=== PATIENT | female | born 1970 | race Caucasian/White ===

== ENCOUNTER 2021-04-15 20:42 | Inpatient (IN) | payer OTHER ==
[~2021-04-15] VITALS: Ht 172.7 cm; Wt 185.1 kg
[~2021-04-15 20:42] MED LIST: ALDACTONE25 MG PO; AZELASTIN-FLUTI23 GM; BUMETANIDE1 MG PO; CELEXA40 MG PO; CIPRO500 MG PO; COLACE100 MG PO; DESYREL 50 MG T50 MG PO; DOXYCYCLINE HY100 M2 PO; FISH OIL 1,0001 EACH PO; FLONASE 0.05% N16 GM; FOLIC ACID 1 MG1 MG PO; HYDROCHLOROTHIA25 MG PO; INVANZ 1 GM VIAL1 GM IM; IPRAT-ALBUT 0.5-3 ML INH; LASIX20 MG PO; MAG-OX 400 TAB400 MG PO; MECLIZINE HCL25 MG PO; MIRALAX17 GM PO; PEPCID20 MG PO; POTASSIUM CHLO20 ME1 PO; PRINIVIL5 MG PO; PROVENTIL HFA6.7 GM INH; PULMICORT FLE180 MCG INH; SINGULAIR10 MG PO; TYLENOL 325MG325 MG PO; VITAMIN D IM; ZOFRAN4 MG PO
[2021-04-15 21:27] LABS: HEMOGLOBIN 12.8 gm/dl (12.3-15.3); RED BLOOD COUNT 4.24 M/UL (4.00-5.10); WHITE BLOOD COUNT 7.8 K/UL (4.5-11.0)
[2021-04-15 21:52] LABS: BUN/CREATININE RATIO 10 (0-10)
[2021-04-16 03:31] LABS: HEMOGLOBIN 12.6 gm/dl (12.3-15.3); RED BLOOD COUNT 4.2 M/UL (4.00-5.10); WHITE BLOOD COUNT 7.4 K/UL (4.5-11.0)
[2021-04-16 04:16] LABS: BUN/CREATININE RATIO 12 (0-10)
[2021-04-16] MEDS ORDERED: KLONOPIN TAB 00.5 MG PO (06:15)
[2021-04-16] MEDS ORDERED: NEURONTIN300 MG PO (06:16)
[2021-04-16] MEDS ORDERED: VITAMIN D31250 MCG PO (06:18)
[2021-04-16] MEDS ORDERED: B-121000 MCG PO (16:05)
[2021-04-16] MEDS ORDERED: MONTELUKAST SOD10 MG PO (16:08)
[2021-04-16] MEDS ORDERED: IBU800 MG PO (16:10)
[2021-04-16] MEDS ORDERED: CARAFATE1 GM PO (19:53)
[2021-04-18 15:52] LABS: HEMOGLOBIN 12.5 gm/dl (12.3-15.3); RED BLOOD COUNT 4.16 M/UL (4.00-5.10); WHITE BLOOD COUNT 10.4 K/UL (4.5-11.0)
--- NOTE | 2021-04-18 18:48 | NUR ---
1806- PT O2 SAT 82%, ABG PO2 52, DR RICO AT BEDSIDE, PT MEDICATED AND INTUBATED, 7.5 ETT, 24 AT [facility], FAMILY NOTIFIED.
[2021-04-19 05:28] LABS: HEMOGLOBIN 11.5 gm/dl (12.3-15.3); RED BLOOD COUNT 3.82 M/UL (4.00-5.10)
[2021-04-19 05:29] LABS: WHITE BLOOD COUNT 7.7 K/UL (4.5-11.0)
--- NOTE | 2021-04-19 12:31 | NUR ---
PT RINGS AND EARRINGS REMOVED R/T SWELLING, PLACED IN DENTURE CUP WITH PT NAME LABEL AT BEDSIDE.
[2021-04-20 05:18] LABS: HEMOGLOBIN 12.1 gm/dl (12.3-15.3); RED BLOOD COUNT 4.05 M/UL (4.00-5.10); WHITE BLOOD COUNT 8.1 K/UL (4.5-11.0)
[2021-04-21 05:39] LABS: RED BLOOD COUNT 4.04 M/UL (4.00-5.10); WHITE BLOOD COUNT 8.1 K/UL (4.5-11.0)
[2021-04-22 04:55] LABS: HEMOGLOBIN 12.3 gm/dl (12.3-15.3); RED BLOOD COUNT 4.15 M/UL (4.00-5.10); WHITE BLOOD COUNT 9.4 K/UL (4.5-11.0)
[2021-04-23 08:25] LABS: HEMOGLOBIN 11.8 gm/dl (12.3-15.3); WHITE BLOOD COUNT 7.8 K/UL (4.5-11.0)
[2021-04-24 06:30] LABS: HEMOGLOBIN 12.7 gm/dl (12.3-15.3); RED BLOOD COUNT 4.27 M/UL (4.00-5.10)
[2021-04-24 06:33] LABS: WHITE BLOOD COUNT 11.8 K/UL (4.5-11.0)
[2021-04-25 06:20] LABS: HEMOGLOBIN 11.6 gm/dl (12.3-15.3); RED BLOOD COUNT 3.99 M/UL (4.00-5.10); WHITE BLOOD COUNT 10.1 K/UL (4.5-11.0)
[2021-04-26 05:23] LABS: HEMOGLOBIN 11.9 gm/dl (12.3-15.3); RED BLOOD COUNT 4.01 M/UL (4.00-5.10)
[2021-04-28 02:02] LABS: HEMOGLOBIN 12.1 gm/dl (12.3-15.3); RED BLOOD COUNT 4.13 M/UL (4.00-5.10); WHITE BLOOD COUNT 11.1 K/UL (4.5-11.0)
[2021-04-29 06:26] LABS: HEMOGLOBIN 12.4 gm/dl (12.3-15.3); RED BLOOD COUNT 4.23 M/UL (4.00-5.10)
[2021-04-29 07:05] LABS: BUN/CREATININE RATIO 47 (0-10)
[2021-04-30 05:23] LABS: BUN/CREATININE RATIO 52 (0-10)
[2021-04-30 05:55] LABS: HEMOGLOBIN 12.2 gm/dl (12.3-15.3); RED BLOOD COUNT 4.09 M/UL (4.00-5.10); WHITE BLOOD COUNT 9.4 K/UL (4.5-11.0)
--- NOTE | 2021-04-30 10:20 | NUR ---
SPOKE WITH PATIENT SONS REGARDING THE POSSIBLITY OF TRACH AND PEG. PER THE SONS WISHES HE DISCUSSED THE SITUATION FURTHER WITH DR. ROMERO. HE SAID HE WILL MAKE A DECISION AND CALL BACK ABOUT HOW HE WOULD LIKE TO PROCEED. PER PRECEDEX STOPPED AT THIS TIME.
[2021-05-01 04:53] LABS: HEMOGLOBIN 12.2 gm/dl (12.3-15.3); RED BLOOD COUNT 4.12 M/UL (4.00-5.10); WHITE BLOOD COUNT 9.2 K/UL (4.5-11.0)
[2021-05-01 05:32] LABS: BUN/CREATININE RATIO 51 (0-10)
[2021-05-02 05:32] LABS: HEMOGLOBIN 11.9 gm/dl (12.3-15.3); RED BLOOD COUNT 4.01 M/UL (4.00-5.10); WHITE BLOOD COUNT 6.9 K/UL (4.5-11.0)
[2021-05-02 05:50] LABS: BUN/CREATININE RATIO 50 (0-10)
[2021-05-03 05:08] LABS: RED BLOOD COUNT 4.05 M/UL (4.00-5.10); WHITE BLOOD COUNT 5.4 K/UL (4.5-11.0)
[2021-05-03 05:47] LABS: BUN/CREATININE RATIO 43 (0-10)
--- NOTE | 2021-05-03 15:51 | NUR ---
Face time call with patients's son Kenji and gave updates on patient. ([id number])
[2021-05-04 06:22] LABS: BUN/CREATININE RATIO 41 (0-10)
--- NOTE | 2021-05-04 09:35 | NUR ---
SPOKE WITH PATIENTS SON JUSTICE, UPDATED HIM ON PATIENT STATUS AND EXTUBATION.
[2021-05-06 05:35] LABS: HEMOGLOBIN 11.9 gm/dl (12.3-15.3); RED BLOOD COUNT 4.01 M/UL (4.00-5.10); WHITE BLOOD COUNT 7.5 K/UL (4.5-11.0)
[2021-05-09 08:27] LABS: HEMOGLOBIN 10.6 gm/dl (12.3-15.3); RED BLOOD COUNT 3.67 M/UL (4.00-5.10); WHITE BLOOD COUNT 4.9 K/UL (4.5-11.0)
[2021-05-09 08:51] LABS: BUN/CREATININE RATIO 18 (0-10)
[2021-05-11 14:15] LABS: HEMOGLOBIN 11.5 gm/dl (12.3-15.3); RED BLOOD COUNT 3.78 M/UL (4.00-5.10)
[2021-05-11 14:39] LABS: BUN/CREATININE RATIO 21 (0-10)
[2021-05-12 09:53] LABS: HEMOGLOBIN 11.3 gm/dl (12.3-15.3); RED BLOOD COUNT 3.79 M/UL (4.00-5.10); WHITE BLOOD COUNT 5.8 K/UL (4.5-11.0)
[2021-05-12 10:27] LABS: BUN/CREATININE RATIO 21 (0-10)
[2021-05-13 02:39] LABS: HEMOGLOBIN 10.9 gm/dl (12.3-15.3); RED BLOOD COUNT 3.68 M/UL (4.00-5.10); WHITE BLOOD COUNT 4.8 K/UL (4.5-11.0)
[2021-05-13 02:59] LABS: BUN/CREATININE RATIO 21 (0-10)
[2021-05-14 08:58] LABS: HEMOGLOBIN 11.3 gm/dl (12.3-15.3); RED BLOOD COUNT 3.84 M/UL (4.00-5.10); WHITE BLOOD COUNT 5.7 K/UL (4.5-11.0)
[2021-05-14 09:28] LABS: BUN/CREATININE RATIO 18 (0-10)
[2021-05-15 03:30] LABS: HEMOGLOBIN 11.3 gm/dl (12.3-15.3); RED BLOOD COUNT 3.79 M/UL (4.00-5.10)
[2021-05-15 03:31] LABS: WHITE BLOOD COUNT 7.3 K/UL (4.5-11.0)
[2021-05-15 03:51] LABS: BUN/CREATININE RATIO 24 (0-10)
[2021-05-16 09:28] LABS: RED BLOOD COUNT 3.72 M/UL (4.00-5.10); WHITE BLOOD COUNT 8.1 K/UL (4.5-11.0)
[2021-05-16 10:08] LABS: BUN/CREATININE RATIO 28 (0-10)
[2021-05-17 08:51] LABS: HEMOGLOBIN 11.4 gm/dl (12.3-15.3); RED BLOOD COUNT 3.8 M/UL (4.00-5.10); WHITE BLOOD COUNT 6.9 K/UL (4.5-11.0)
[2021-05-17 09:19] LABS: BUN/CREATININE RATIO 24 (0-10)
[2021-05-18 07:49] LABS: HEMOGLOBIN 11.4 gm/dl (12.3-15.3); RED BLOOD COUNT 3.86 M/UL (4.00-5.10); WHITE BLOOD COUNT 6.8 K/UL (4.5-11.0)
[2021-05-18 08:22] LABS: BUN/CREATININE RATIO 27 (0-10)
[2021-05-19 05:28] LABS: HEMOGLOBIN 11.4 gm/dl (12.3-15.3); RED BLOOD COUNT 3.9 M/UL (4.00-5.10); WHITE BLOOD COUNT 8.1 K/UL (4.5-11.0)
[2021-05-19 06:33] LABS: BUN/CREATININE RATIO 24 (0-10)
[2021-05-20 05:01] LABS: HEMOGLOBIN 10.6 gm/dl (12.3-15.3); RED BLOOD COUNT 3.64 M/UL (4.00-5.10); WHITE BLOOD COUNT 7.9 K/UL (4.5-11.0)
[2021-05-21 03:22] LABS: HEMOGLOBIN 11.3 gm/dl (12.3-15.3); RED BLOOD COUNT 3.77 M/UL (4.00-5.10); WHITE BLOOD COUNT 9.4 K/UL (4.5-11.0)
[2021-05-21 04:12] LABS: BUN/CREATININE RATIO 25 (0-10)
[2021-05-22 02:44] LABS: HEMOGLOBIN 10.9 gm/dl (12.3-15.3); RED BLOOD COUNT 3.68 M/UL (4.00-5.10); WHITE BLOOD COUNT 9.2 K/UL (4.5-11.0)
[2021-05-22 03:03] LABS: BUN/CREATININE RATIO 26 (0-10)
[2021-05-23 03:02] LABS: RED BLOOD COUNT 3.7 M/UL (4.00-5.10)
[2021-05-23 03:41] LABS: BUN/CREATININE RATIO 26 (0-10)
[2021-05-26 06:43] LABS: HEMOGLOBIN 10.8 gm/dl (12.3-15.3); RED BLOOD COUNT 3.56 M/UL (4.00-5.10); WHITE BLOOD COUNT 8.3 K/UL (4.5-11.0)
[2021-05-26 08:59] LABS: BUN/CREATININE RATIO 22 (0-10)
[2021-05-27 08:00] LABS: HEMOGLOBIN 10.2 gm/dl (12.3-15.3); RED BLOOD COUNT 3.51 M/UL (4.00-5.10); WHITE BLOOD COUNT 8.2 K/UL (4.5-11.0)
[2021-05-28 07:02] LABS: HEMOGLOBIN 10.9 gm/dl (12.3-15.3); RED BLOOD COUNT 3.76 M/UL (4.00-5.10); WHITE BLOOD COUNT 8.5 K/UL (4.5-11.0)
[2021-05-29 05:03] LABS: HEMOGLOBIN 10.6 gm/dl (12.3-15.3); RED BLOOD COUNT 3.68 M/UL (4.00-5.10); WHITE BLOOD COUNT 9.1 K/UL (4.5-11.0)
[2021-05-30 07:37] LABS: HEMOGLOBIN 10.2 gm/dl (12.3-15.3); RED BLOOD COUNT 3.54 M/UL (4.00-5.10)
[2021-05-31 08:15] LABS: HEMOGLOBIN 10.9 gm/dl (12.3-15.3); RED BLOOD COUNT 3.64 M/UL (4.00-5.10); WHITE BLOOD COUNT 7.5 K/UL (4.5-11.0)
[2021-05-31 08:35] LABS: BUN/CREATININE RATIO 22 (0-10)
[2021-06-01 07:41] LABS: HEMOGLOBIN 10.8 gm/dl (12.3-15.3); RED BLOOD COUNT 3.75 M/UL (4.00-5.10); WHITE BLOOD COUNT 6.7 K/UL (4.5-11.0)
[2021-06-02 06:37] LABS: HEMOGLOBIN 10.7 gm/dl (12.3-15.3); RED BLOOD COUNT 3.59 M/UL (4.00-5.10); WHITE BLOOD COUNT 6.8 K/UL (4.5-11.0)
--- NOTE | 2021-06-02 18:58 | NUR ---
pt weight 176.4kg
[2021-06-03 06:57] LABS: HEMOGLOBIN 11.2 gm/dl (12.3-15.3); RED BLOOD COUNT 3.78 M/UL (4.00-5.10); WHITE BLOOD COUNT 8.3 K/UL (4.5-11.0)
[2021-06-04 07:05] LABS: HEMOGLOBIN 11.1 gm/dl (12.3-15.3); RED BLOOD COUNT 3.7 M/UL (4.00-5.10); WHITE BLOOD COUNT 8.1 K/UL (4.5-11.0)
[2021-06-05 07:35] LABS: HEMOGLOBIN 10.7 gm/dl (12.3-15.3); RED BLOOD COUNT 3.59 M/UL (4.00-5.10); WHITE BLOOD COUNT 7.7 K/UL (4.5-11.0)
[2021-06-06 08:22] LABS: HEMOGLOBIN 10.8 gm/dl (12.3-15.3); RED BLOOD COUNT 3.72 M/UL (4.00-5.10); WHITE BLOOD COUNT 8.2 K/UL (4.5-11.0)
[2021-06-07 07:02] LABS: HEMOGLOBIN 10.8 gm/dl (12.3-15.3); RED BLOOD COUNT 3.61 M/UL (4.00-5.10); WHITE BLOOD COUNT 8.6 K/UL (4.5-11.0)
[2021-06-08 06:54] LABS: HEMOGLOBIN 11.2 gm/dl (12.3-15.3); RED BLOOD COUNT 3.75 M/UL (4.00-5.10); WHITE BLOOD COUNT 8.3 K/UL (4.5-11.0)
[2021-06-10] MEDS ORDERED: LOPRESSOR 25 MG25 MG NG (11:16)
[2021-06-10] MEDS ORDERED: ELIQUIS 5 MG TAB5 MG PO (11:16)
[2021-06-10] MEDS ORDERED: POTASSIUM CHLO20 ME1 PO (11:16)
[2021-06-10] MEDS ORDERED: PERCOCET 5/325 T1 EA PO (11:16)
[2021-06-10] MEDS ORDERED: MEGACE 400400 MG/10 NG (11:16)
[2021-06-10] MEDS ORDERED: BUMETANIDE1 MG PO (11:16)
[2021-06-10] MEDS ORDERED: GABAPENTIN100 MG PO (11:16)
[2021-06-10] MEDS ORDERED: KLONOPIN TAB 00.5 MG PO (11:19)
[2021-06-10] MEDS ORDERED: HUMALOG 10100 UNITS/ SC (13:10)
[2021-06-10] MEDS ORDERED: LANTUS INS100 UTS/M1 SC (13:10)
== END 2021-06-10 17:09 | DRG 207 ==
LOC: ER1 20:42 → PROG CARE 22:14 → MED SURG 4 22:14 → CDU 22:14 → CCU 22:14 → PROG CARE 04-16 02:07 → CCU 04-18 15:06 → PROG CARE 05-10 16:49 → MED SURG 4 05-25 10:25
PROVIDERS: Family Medicine; Internal Medicine; Internal Medicine Pulmonary Disease; Surgery; ADMIT Internal Medicine
PROC: 5A09457 Assistance with Respiratory Ventilation, 24-96 Consecutive Hours, Continuous Positive Airway Pressure (ICD-10-PCS; principal; 2021-04-15)
PROC: 0DH67UZ Insertion of Feeding Device into Stomach, Via Natural or Artificial Opening (ICD-10-PCS; 2021-04-15)
PROC: 3E0336Z Introduction of Nutritional Substance into Peripheral Vein, Percutaneous Approach (ICD-10-PCS; 2021-04-15)
PROC: 8E0ZXY6 Isolation (ICD-10-PCS; 2021-04-15)
PROC: 3E0333Z Introduction of Anti-inflammatory into Peripheral Vein, Percutaneous Approach (ICD-10-PCS; 2021-04-15)
PROC: XW033E5 Introduction of Remdesivir Anti-infective into Peripheral Vein, Percutaneous Approach, New Technology Group 5 (ICD-10-PCS; 2021-04-15)
PROC: XW033H5 Introduction of Tocilizumab into Peripheral Vein, Percutaneous Approach, New Technology Group 5 (ICD-10-PCS; 2021-04-15)
PROC: 5A1955Z Respiratory Ventilation, Greater than 96 Consecutive Hours (ICD-10-PCS; 2021-04-18)
PROC: 0BH17EZ Insertion of Endotracheal Airway into Trachea, Via Natural or Artificial Opening (ICD-10-PCS; 2021-04-18)
PROC: 02HV33Z Insertion of Infusion Device into Superior Vena Cava, Percutaneous Approach (ICD-10-PCS; 2021-04-20)
PROC: 0B9D8ZX Drainage of Right Middle Lung Lobe, Via Natural or Artificial Opening Endoscopic, Diagnostic (ICD-10-PCS; 2021-04-20)
PROC: 0BJ08ZZ Inspection of Tracheobronchial Tree, Via Natural or Artificial Opening Endoscopic (ICD-10-PCS; 2021-04-20)
PROC: 5A09357 Assistance with Respiratory Ventilation, Less than 24 Consecutive Hours, Continuous Positive Airway Pressure (ICD-10-PCS; 2021-05-04)
PROC: 5A09457 Assistance with Respiratory Ventilation, 24-96 Consecutive Hours, Continuous Positive Airway Pressure (ICD-10-PCS; 2021-05-14)
DX: U07.1 COVID-19 (principal); J12.82 Pneumonia due to coronavirus disease 2019; G93.41 Metabolic encephalopathy; J69.0 Pneumonitis due to inhalation of food and vomit; J80 Acute respiratory distress syndrome; E66.2 Morbid (severe) obesity with alveolar hypoventilation; I50.42 Chronic combined systolic (congestive) and diastolic (congestive) heart failure; J44.0 Chronic obstructive pulmonary disease with (acute) lower respiratory infection; N17.9 Acute kidney failure, unspecified; I13.0 Hypertensive heart and chronic kidney disease with heart failure and stage 1 through stage 4 chronic kidney disease, or unspecified chronic kidney disease; Z68.44 Body mass index [BMI] 60.0-69.9, adult; E87.0 Hyperosmolality and hypernatremia; Z23 Encounter for immunization; F41.9 Anxiety disorder, unspecified; K59.00 Constipation, unspecified; L89.892 Pressure ulcer of other site, stage 2; L89.156 Pressure-induced deep tissue damage of sacral region; L89.516 Pressure-induced deep tissue damage of right ankle; N18.30 Chronic kidney disease, stage 3 unspecified; E11.65 Type 2 diabetes mellitus with hyperglycemia; R53.81 Other malaise; G72.9 Myopathy, unspecified; E87.6 Hypokalemia; G89.29 Other chronic pain; E87.70 Fluid overload, unspecified; E11.40 Type 2 diabetes mellitus with diabetic neuropathy, unspecified; E11.22 Type 2 diabetes mellitus with diabetic chronic kidney disease; E83.42 Hypomagnesemia; L89.106 Pressure-induced deep tissue damage of unspecified part of back; M21.372 Foot drop, left foot; Z91.14 Patient's other noncompliance with medication regimen; Z88.8 Allergy status to other drugs, medicaments and biological substances; Z87.891 Personal history of nicotine dependence; Z79.899 Other long term (current) drug therapy
CPT/HCPCS: 36415; 36600; 71045; 74230; 80048; 80053; 81001; 82140; 82533; 82550; 82553; 82728; 82803; 82962; 83036; 83605; 83615; 83735; 83880; 84100; 84132; 84484; 85025; 85027; 85379; 85384; 85610; 85730; 86140; 87040; 87070; 87081; 87086; 87205; 92526; 92610; 92611-GN; 93005; 93925; 94003; 94640; 94660; 94664; 94760; 94761; 97110; 97110-GP-CQ; 97116; 97162; 97167; 97530; 97530-GP-CQ; 97535; 99285; A6212; C1751; C9113; J1100; J1120; J1205; J1335; J1650; J1956; J2060; J2185; J2405; J2704; J2930; J3010; J3475; J7030; J7050; J7070; Q0249; U0002

== ENCOUNTER → 2021-07-26 | Outpatient (CLI) | payer OTHER ==
[~2021-07-26] MED LIST changes: +B-121000 MCG PO; +CARAFATE1 GM PO; +ELIQUIS 5 MG TAB5 MG PO; +GABAPENTIN100 MG PO; +HUMALOG 10100 UNITS/ SC; +IBU800 MG PO; +KLONOPIN TAB 00.5 MG PO; +LANTUS INS100 UTS/M1 SC; +LOPRESSOR 25 MG25 MG NG; +MEGACE 400400 MG/10 NG; +MONTELUKAST SOD10 MG PO; +NEURONTIN300 MG PO; +PERCOCET 5/325 T1 EA PO; +VITAMIN D31250 MCG PO
== END ==
LOC: EXRD 13:00
DX: N93.9 Abnormal uterine and vaginal bleeding, unspecified (principal)
CPT/HCPCS: 76857

== ENCOUNTER 2021-08-24 15:37 | Inpatient (IN) | payer OTHER ==
[~2021-08-24] VITALS: Ht 172.7 cm; Wt 172.9 kg
[2021-08-24 16:33] LABS: HEMOGLOBIN 11.7 gm/dl (12.3-15.3); RED BLOOD COUNT 3.95 M/UL (4.00-5.10); WHITE BLOOD COUNT 10.1 K/UL (4.5-11.0)
[2021-08-24 17:05] LABS: BUN/CREATININE RATIO 13 (0-10)
[2021-08-25 04:27] LABS: HEMOGLOBIN 10.6 gm/dl (12.3-15.3); RED BLOOD COUNT 3.63 M/UL (4.00-5.10)
[2021-08-25 04:52] LABS: BUN/CREATININE RATIO 13 (0-10)
[2021-08-25] MEDS ORDERED: BUMETANIDE1 MG PO (11:14)
[2021-08-25] MEDS ORDERED: KLONOPIN0.5 MG PO (11:15)
[2021-08-25] MEDS ORDERED: GABAPENTIN100 MG PO (11:16)
[2021-08-25] MEDS ORDERED: FISH OIL 1,0001 EACH PO (11:18)
[2021-08-25] MEDS ORDERED: IBU800 MG PO (11:19)
--- NOTE | 2021-08-30 16:49 | NUR ---
follow up for ambulance services for Pennie SORIA stated will call me back
--- NOTE | 2021-08-30 17:54 | NUR ---
follow up with EMS [facility] chao/miko tucker and bernie will call back for ETA
== END 2021-08-30 20:25 | DRG 690 ==
LOC: ER1 15:37 → CDU 18:54 → M/S 21:33
PROVIDERS: Physician Assistant; ADMIT Internal Medicine
DX: N30.00 Acute cystitis without hematuria (principal); J96.11 Chronic respiratory failure with hypoxia; E66.2 Morbid (severe) obesity with alveolar hypoventilation; Z20.822 Contact with and (suspected) exposure to COVID-19; J84.9 Interstitial pulmonary disease, unspecified; I13.0 Hypertensive heart and chronic kidney disease with heart failure and stage 1 through stage 4 chronic kidney disease, or unspecified chronic kidney disease; I50.42 Chronic combined systolic (congestive) and diastolic (congestive) heart failure; E87.3 Alkalosis; Z68.43 Body mass index [BMI] 50.0-59.9, adult; R07.89 Other chest pain; M21.372 Foot drop, left foot; E11.40 Type 2 diabetes mellitus with diabetic neuropathy, unspecified; I16.0 Hypertensive urgency; L89.312 Pressure ulcer of right buttock, stage 2; J32.9 Chronic sinusitis, unspecified; E11.22 Type 2 diabetes mellitus with diabetic chronic kidney disease; J44.9 Chronic obstructive pulmonary disease, unspecified; R53.81 Other malaise; E11.9 Type 2 diabetes mellitus without complications; Z79.4 Long term (current) use of insulin; Z87.01 Personal history of pneumonia (recurrent); Z79.01 Long term (current) use of anticoagulants; Z88.6 Allergy status to analgesic agent; Z88.8 Allergy status to other drugs, medicaments and biological substances; Z88.1 Allergy status to other antibiotic agents; Z87.891 Personal history of nicotine dependence; Z98.891 History of uterine scar from previous surgery; Z82.49 Family history of ischemic heart disease and other diseases of the circulatory system
CPT/HCPCS: 36415; 36600; 51702; 70450; 71045; 80048; 80053; 80061; 81001; 82550; 82553; 82803; 82962; 83036; 83735; 83874; 84484; 84703; 85025; 85027; 85379; 87077; 87086; 87186; 93005; 93971; 94640; 94760; 96372; 96374; 97110; 97110-GP-CQ; 97162; 97166; 97530; 97530-GP-CQ; 97535; 99285; A6212; G0378; J1335; J1650; J1956; U0002